=== PATIENT | male | born 1965 | race Caucasian/White ===

== ENCOUNTER 2016-05-15 16:36 | Emergency (ER) | payer MEDICARE, OTHER ==
[2016-05-15 17:14] VITALS: BP 159/91
[2016-05-15] MEDS ORDERED: HYDR-971 PO (17:59)
[2016-05-15] MEDS ORDERED: PENI500T PO (17:59)
--- NOTE | 2016-05-15 18:00 | PHYS DOC ---
Past Medical History Past Medical History: Other Additional Past Medical Histor: deaf Past Surgical History: No Surgical History Smoking: Less than 1pk/day Alcohol Use: Occasionally Additional Information: WEEKENDS Drug Use: None Adult General Chief Complaint Chief Complaint: DENTAL PROBLEM HPI HPI Patient is a 51 year old male who presents with right mandibular dental pain for 1 week. He has an appointment scheduled with a dentist on May 29. His PCP is Dr. Meadows. The patient is deaf. Information was obtained by writing on paper. Review of Systems Review of Systems Constitutional: Denies fever or chills. [] Eyes: Denies change in visual acuity, redness, or eye pain. [] HENT: Denies ear pain, nasal congestion or sore throat. Reports dental pain. Integument: Denies rash or skin lesions. [] Allergies Allergies Allergies Coded Allergies Type Severity Reaction Last Updated Verified No Known Drug Allergies 07/06/13 No Physical Exam Physical Exam Constitutional: Well developed, well nourished, no acute distress, non-toxic appearance. [] HENT: Normocephalic, atraumatic, bilateral external ears normal, oropharynx moist, no oral exudates, nose normal. Bilateral TMs without erythema or bulging. There is no posterior pharyngeal erythema or tonsillar edema. Tooth # 26 and #27 are carious and tender. There is minimal surrounding gingival edema or dental abscess. Eyes: PERRLA, EOMI, conjunctiva normal, no discharge. [] Neck: Normal range of motion, no tenderness, supple, no stridor. [] Skin: Warm, dry, no erythema, no rash. [] Neurologic: Alert and oriented X 3, normal motor function, normal sensory function, no focal deficits noted. [] Psychologic: Affect normal, judgement normal, mood normal. [] Current Patient Data Vital Signs Vital Signs Date Time Temp Pulse Resp B/P Pulse Ox O2 Delivery O2 Flow Rate FiO2 05/15/16 17:14 98.2 80 16 159/91 98 Room Air 98.2 EKG EKG [] Radiology/Procedures Radiology/Procedures [] Course & Med Decision Making Course & Med Decision Making Pertinent Labs and Imaging studies reviewed. (See chart for details) [] Dragon Disclaimer Dragon Disclaimer This electronic medical record was generated, in whole or in part, using a voice recognition dictation system. Departure Departure Impression: Primary Impression: Dentalgia Disposition: 01 HOME, SELF-CARE Condition: STABLE Referrals: UNKNOWN PCP NAME (PCP) Patient Instructions: Dental Pain, [id number] Additional Instructions: Please All the prescribed antibiotics, even if your tooth is better. Please take the prescribed pain medication as instructed. Do not drive or operate heavy machinery while taking pain medication. Please follow-up with the dentist of your choice as soon as possible. Return to the emergency Department if you have any new or concerning symptoms. Scripts Hydrocodone/Apap 5-325 ([place] 5-325 Tablet)1 Each Tablet1 Tab PO PRN Q6HRS PRN PAIN #20 TAB Prov:PAMELA MUNGUIA 05/15/16 Penicillin V Potassium 500 Mg Tablet1 Tab PO TID #30 TAB Prov:PAMELA MUNGUIA 05/15/16 PAMELA MUNGUIA May 15, 2016 17:59
== END 2016-05-15 18:17 | disposition home or self-care (01) ==
LOC: ER 16:36
DX: K08.89 Other specified disorders of teeth and supporting structures (principal); F17.200 Nicotine dependence, unspecified, uncomplicated
CPT/HCPCS: 99283

== ENCOUNTER 2016-09-08 11:09 | Emergency (ER) | payer MEDICARE ==
[~2016-09-08] VITALS: Ht 175.3 cm; Wt 95.3 kg
[~2016-09-08 11:09] MED LIST: HYDR-971 PO; PENI500T PO
[2016-09-08 11:30] VITALS: BP 153/87
[2016-09-08] MEDS ORDERED: HYDROcodone/APAP 5/325MG 1 TAB TABLET PO ONE (12:00)
[2016-09-08] MEDS ORDERED: HYDR-971 PO (12:00)
[2016-09-08] MEDS ORDERED: CLIN150C14 PO (12:00)
--- NOTE | 2016-09-08 12:00 | PHYS DOC ---
Past Medical History Past Medical History: Other Additional Past Medical Histor: HEARING IMPAIRED Past Surgical History: No Surgical History Alcohol Use: Occasionally Drug Use: None Adult General Chief Complaint Chief Complaint: DENTAL PROBLEM HPI HPI Patient is a 51 year old male presents emergency Department stating he's been having front dental pain on the lower. He states he's been having the pain and discomfort for the last 4 days states that it's a throbbing type of pain. He states he has not slept in the last 2 days. He has tried Aleve with no relief. He has also tried Tylenol with no relief. Patient denies any fever, chills. He did state he called her dentist and is unable to get into the dentist until October 02. Patient denies nausea vomiting. Review of Systems Review of Systems Constitutional: Denies fever or chills [] Eyes: Denies change in visual acuity, redness, or eye pain [] HENT: Denies nasal congestion or sore throat. Complaint of dental pain Respiratory: Denies cough or shortness of breath [] Cardiovascular: No additional information not addressed in HPI [] GI: Denies abdominal pain, nausea, vomiting, bloody stools or diarrhea [] : Denies dysuria or hematuria [] Musculoskeletal: Denies back pain or joint pain [] Integument: Denies rash or skin lesions [] Neurologic: Denies headache, focal weakness or sensory changes [] Endocrine: Denies polyuria or polydipsia [] Allergies Allergies Allergies Coded Allergies Type Severity Reaction Last Updated Verified No Known Drug Allergies 07/06/13 No Physical Exam Physical Exam Constitutional: Well developed, well nourished, no acute distress, non-toxic appearance. [] HENT: Normocephalic, atraumatic, bilateral external ears normal, oropharynx moist, no oral exudates, nose normal. Bilateral tympanic membranes appear to be normal. Throat with no erythematous no drainage no exudate noted. Patient appears to have a rotten teeth in the front approximately 4 on the lower mouth. This is aware the patient is stating that he has having pain and discomfort. No drainage or discharge noted from the site. Eyes: PERRLA, EOMI, conjunctiva normal, no discharge. [] Neck: Normal range of motion, no tenderness, supple, no stridor. [] Cardiovascular:Heart rate regular rhythm, no murmur [] Lungs & Thorax: Bilateral breath sounds clear to auscultation [] Skin: Warm, dry, no erythema, no rash. [] Back: No tenderness Extremities: No tenderness, no cyanosis, no clubbing, ROM intact, no edema. [] Neurologic: Alert and oriented X 3, normal motor function, normal sensory function, no focal deficits noted. [] Psychologic: Affect normal, judgement normal, mood normal. [] Current Patient Data Vital Signs Vital Signs Date Time Temp Pulse Resp B/P (MAP) Pulse Ox O2 Delivery O2 Flow Rate FiO2 09/08/16 11:30 98.2 72 16 153/87 (109) 98 Room Air 98.2 EKG EKG [] Radiology/Procedures Radiology/Procedures [] Course & Med Decision Making Course & Med Decision Making Pertinent Labs and Imaging studies reviewed. (See chart for details) Patient will be discharged home with Venus. Instructed that this medication will cause drowsiness do not take any be alert and oriented. Do not add any Tylenol to this medication as it has Tylenol in it. Patient will also be encouraged to take Aleve for the pain and discomfort as well. Patient will be placed on clindamycin. Also recommended patient to take Benadryl to help with sleep. Recommended the patient keep his dental appointment on the . Signs symptoms to return back to emergency department as been provided. Patient agrees with discharge instructions treatment regimens and follow-up recommendations. [] Dragon Disclaimer Dragon Disclaimer This electronic medical record was generated, in whole or in part, using a voice recognition dictation system. Departure Departure Impression: Primary Impression: Dentalgia Disposition: HOME, SELF-CARE Condition: STABLE Referrals: UNKNOWN PCP NAME (PCP) Patient Instructions: Dental Pain, [id number] Additional Instructions: Keep your dental plan he had October 02. Venus will cause drowsiness do not take any be alert and oriented. Do not take any further Tylenol with this is a 30 has Tylenol in it. Benadryl will help with sleeping. Continue to take Aleve. Antibiotics as prescribed. Follow-up with a dentist as you have an appointment. Return back to emergency prior signs symptoms of become worse. Scripts Hydrocodone/Apap 5-325 (NORCO 5-325 TABLET) 1 Each Tablet 1 TAB PO PRN Q6HRS Y for PAIN, #15 TAB 0 Refills Prov: JOSE SCOTT APRN 09/08/16 Clindamycin Hcl (CLINDAMYCIN HCL) 150 Mg Capsule 3 CAP PO TID for 10 Days, CAP Prov: JOSE SCOTT APRN 09/08/16 JOSE SCOTT APRN Sep 08, 2016 12:00
== END 2016-09-08 12:16 | disposition home or self-care (01) ==
LOC: ER 11:09
DX: K08.89 Other specified disorders of teeth and supporting structures (principal)
CPT/HCPCS: 99283

== ENCOUNTER 2017-01-08 16:39 | Emergency (ER) | payer MEDICARE ==
[~2017-01-08] VITALS: Ht 175.3 cm; Wt 86.2 kg
[~2017-01-08 16:39] MED LIST changes: +CLIN150C14 PO
[2017-01-08 17:31] VITALS: BP 156/92
[2017-01-08] MEDS ORDERED: HYDR-971 PO (17:45)
[2017-01-08] MEDS ORDERED: CLIN150C14 PO (17:45)
--- NOTE | 2017-01-08 17:45 | PHYS DOC ---
Past Medical History Past Medical History: Other Additional Past Medical Histor: HEARING IMPAIRED Past Surgical History: No Surgical History Alcohol Use: Occasionally Drug Use: None Adult General Chief Complaint Chief Complaint: DENTAL PROBLEM HPI HPI Patient is a 51 year old male who is hearing impaired presents the ED complaining of dental pain 1 week. Patient states he has an appointment to get his teeth pulled on January 23. Patient has had a long history of dental pain. States he has taken Motrin at home. States no improvement. Describes the pain as sharp. Rates the pain as 9 out of 10. Denies swelling, abscess, difficulty swallowing, tongue swelling, fever, nausea/vomiting, abdominal pain, chest pain or shortness of breath. Review of Systems Review of Systems Constitutional: Denies fever or chills [] Eyes: Denies change in visual acuity, redness, or eye pain [] HENT: Denies nasal congestion or sore throat [] Respiratory: Denies cough or shortness of breath [] Cardiovascular: No additional information not addressed in HPI [] GI: Denies abdominal pain, nausea, vomiting, bloody stools or diarrhea [] : Denies dysuria or hematuria [] Musculoskeletal: Denies back pain or joint pain [] Integument: Denies rash or skin lesions [] Neurologic: Denies headache, focal weakness or sensory changes [] Endocrine: Denies polyuria or polydipsia [] All other systems were reviewed and found to be within normal limits, except as documented in this note. Allergies Allergies Allergies Coded Allergies Type Severity Reaction Last Updated Verified Penicillins Allergy Unknown Rash 09/08/16 Yes ibuprofen Allergy Unknown Rash 09/08/16 Yes tramadol Allergy Unknown Rash 09/08/16 Yes Physical Exam Physical Exam Constitutional: Well developed, well nourished, no acute distress, non-toxic appearance. [] HENT: Normocephalic, atraumatic, bilateral external ears normal, oropharynx moist, no oral exudates, nose normal. MILD LOWER FRONTAL DENTAL TENDERNESS. MULTIPLE MISSING TEETH AND DENTAL CARIES. NO ABSCESS OR FLUCTUANCE.[] Eyes: PERRLA, EOMI, conjunctiva normal, no discharge. [] Neck: Normal range of motion, no tenderness, supple, no stridor. [] Cardiovascular:Heart rate regular rhythm, no murmur [] Lungs & Thorax: Bilateral breath sounds clear to auscultation [] Neurologic: Alert and oriented X 3, normal motor function, normal sensory function, no focal deficits noted. [] Psychologic: Affect normal, judgement normal, mood normal. [] Current Patient Data Vital Signs Vital Signs Date Time Temp Pulse Resp B/P (MAP) Pulse Ox O2 Delivery O2 Flow Rate FiO2 01/08/17 17:31 98.2 73 16 98 Room Air 98.2 EKG EKG [] Radiology/Procedures Radiology/Procedures [] Course & Med Decision Making Course & Med Decision Making Pertinent Labs and Imaging studies reviewed. (See chart for details) []Tolerating by mouth. Will prescribe clindamycin and [facility] outpatient. Discussed the importance of follow-up with dentist and reasons to return to the ED. Patient understands and agrees with plan. Dragon Disclaimer Maryanne Disclaimer This electronic medical record was generated, in whole or in part, using a voice recognition dictation system. Departure Departure Impression: Primary Impression: Dentalgia Additional Impression: Dental caries Disposition: 01 HOME, SELF-CARE Condition: STABLE Referrals: UNKNOWN PCP NAME (PCP) SHELLY DORAN DDS Patient Instructions: Dental Caries, Dental Pain Scripts Clindamycin Hcl (CLINDAMYCIN HCL) 150 Mg Capsule 3 CAP PO TID for 10 Days, CAP Prov: TONY VELASCO 01/08/17 Hydrocodone/Apap 5-325 (NOR[place] 5-325 TABLET) 1 Each Tablet 1 TAB PO PRN Q6HRS Y for PAIN, #10 TAB Prov: TONY VELASCO 01/08/17 Problem Qualifiers TONY VELASCO Jan 08, 2017 17:45
== END 2017-01-08 17:50 | disposition home or self-care (01) ==
LOC: ER 16:39
DX: K02.9 Dental caries, unspecified (principal); H91.90 Unspecified hearing loss, unspecified ear; Z88.0 Allergy status to penicillin; Z88.5 Allergy status to narcotic agent; Z88.6 Allergy status to analgesic agent
CPT/HCPCS: 99283